=== PATIENT | female | born 1955 | race Caucasian/White ===

== ENCOUNTER → 2023-06-20 12:31 | Outpatient (REF) | payer MEDICARE, SELFPAY | LOC: HWRAD 12:31 | PROVIDERS: ATTENDING PHYSICIAN Internal Medicine Hematology & Oncology | DX: C34.11 Malignant neoplasm of upper lobe, right bronchus or lung (principal) | CPT/HCPCS: 71260; Q9967 ==

== ENCOUNTER → 2024-01-09 12:30 | Outpatient (REF) | payer MEDICARE, SELFPAY | LOC: HWRAD 12:30 | PROVIDERS: ATTENDING PHYSICIAN Radiology Radiation Oncology | DX: C34.11 Malignant neoplasm of upper lobe, right bronchus or lung (principal) | CPT/HCPCS: 71260; Q9967 ==

== ENCOUNTER → 2024-05-24 11:02 | Outpatient (REF) | payer MEDICARE, SELFPAY | LOC: RAD 11:02 | PROVIDERS: ATTENDING PHYSICIAN Internal Medicine Hematology & Oncology; FAMILY PHYSICIAN Student in an Organized Health Care Education/Training Program | DX: C34.11 Malignant neoplasm of upper lobe, right bronchus or lung (principal); Z51.12 Encounter for antineoplastic immunotherapy; Z13.84 Encounter for screening for dental disorders; R53.83 Other fatigue; E55.9 Vitamin D deficiency, unspecified | CPT/HCPCS: 71260; Q9967 ==

== ENCOUNTER → 2024-07-31 16:55 | Outpatient (REF) | payer MEDICARE, SELFPAY ==
[2024-07-31 17:38] LABS: Blood Urea Nitrogen 10 mg/dl (7-17); Carbon Dioxide 26 mmol/L (22-30); Chloride 111 mmol/L (98-107); Glucose 106 mg/dl (70-99); Potassium 4.3 mmol/L (3.5-5.1); Sodium 142 mmol/L (135-145); eGFR > 60.00
== END ==
LOC: REG 16:55
PROVIDERS: ATTENDING PHYSICIAN Family Medicine
DX: S22.5XXA Flail chest, initial encounter for closed fracture (principal); Z13.9 Encounter for screening, unspecified
CPT/HCPCS: 36415; 71260; 80048; Q9967

== ENCOUNTER → 2024-11-22 15:05 | Outpatient (REF) | payer MEDICARE, SELFPAY | LOC: HWRAD 15:05 | PROVIDERS: ATTENDING PHYSICIAN Internal Medicine Hematology & Oncology | DX: C34.11 Malignant neoplasm of upper lobe, right bronchus or lung (principal); Z51.12 Encounter for antineoplastic immunotherapy; Z13.84 Encounter for screening for dental disorders; R53.83 Other fatigue; E55.9 Vitamin D deficiency, unspecified | CPT/HCPCS: 71046 ==

== ENCOUNTER → 2025-01-10 12:56 | Outpatient (REF) | payer MEDICARE, SELFPAY | LOC: RAD 12:56 | PROVIDERS: ATTENDING PHYSICIAN Radiology Radiation Oncology | DX: C34.11 Malignant neoplasm of upper lobe, right bronchus or lung (principal) | CPT/HCPCS: 71260; Q9967 ==